=== PATIENT | male | born 1995 | race Caucasian/White ===

== ENCOUNTER 2021-07-17 11:25 | Inpatient (IN) | payer SELFPAY ==
--- NOTE | 2021-07-17 11:36 | W.ED.PSYCH ---
HPI - Psych General: Stated Complaint: 96HR MHE Time Seen by Provider: 07/17/21 11:28 Source: patient and police Mode of arrival: other (police custody) Limitations: no limitations History of Present Illness: HPI Narrative: Patient is a 26-year-old male who presents to ED today from [facility] on a 96-hour hold. From what I can gather from patient's paperwork he attempted suicide yesterday while in [facility] by hanging himself with a bedsheet. He was subsequently transferred to [place] ED and cleared medically. They unfortunately were not able to find patient psychiatric care secondary to limited beds so he was discharged back to [facility]. At some point Dr. Jarvis was contacted who accepted the patient at [facility] as a direct admit. Patient was never supposed to be checked in as an ED patient. Patient tells me he feels suicidal secondary to his mother currently being in the [facility] dying of COVID . He states she is the only family he has left. MD complaint: suicidal ideation Associated symptoms: Reports depression and suicidal ideation Review of Systems Psych: Reports: depression, hopelessness and suicidal ideation Physical Exam Const: COMMON NORMALS: no acute distress, average body habitus, patient oriented x3, no limitations, healthy appearing, alert and well nourished Neck/C-Spine: COMMON NORMALS: full ROM GENERAL: No tender CAROTIDS: No bruit CERVICAL SPINE: Yes cervical ROM normal, No pain with cervical ROM, No Cervical spine tenderness, No Paracervical muscle tenderness and Yes other (No ligature ) Resp: COMMON NORMALS: normal respiratory effort and clear to auscultation bilaterally AUSCULTATION: clear to auscultation bilaterally Cardio: COMMON NORMALS: regular rate and regular rhythm RATE: regular rate RHYTHM: regular rhythm Neuro: COMMON NORMALS: patient oriented x3 SENSORIUM/ORIENTATION: Yes alert Skin: COMMON NORMALS: no rashes or lesions noted GENERAL SKIN EXAM: no rashes or lesions noted TRAUMA: no lacerations or abrasions MDM - Psych MDM Narrative: Medical decision making narrative: Patient will be escorted to [facility] as he was supposed to be a direct admit. Discharge Plan Discharge Patient Disposition: Admitted As Inpatient Admit Provider: Jj Jarvis Clinical Impression: Suicidal ideation, Involuntary commitment Condition: Stable Coding Level of Care Code ED Cardiothoracic Anesthesia Technician for Ollie Mack
[2021-07-17 14:09] LABS: Basophils # 0.1 10^3/uL (0.0-0.1); Basophils % 0.9 %; Eosinophils # 0.1 10^3/uL (0.0-0.8); Eosinophils % 1.4 %; Hematocrit 40.4 % (42.0-52.0); Hemoglobin 13.9 g/dL (11.7-16.6); Lymphocytes # 1.2 10^3/uL (0.8-4.8); Lymphocytes % 20.4 %; Mean Corpuscular HGB Conc 34.4 g/dL (30.0-36.0); Mean Corpuscular Hemoglobin 30.9 pg (28.0-34.0); Mean Corpuscular Volume 89.8 fl (80-94); Mean Platelet Volume 8.8 fL (7.4-10.4); Monocytes # 0.4 10^3/uL (0.2-0.9); Monocytes % 6.7 %; Neutrophils # 4.08 10^3/uL (1.8-7.7); Neutrophils % 70.4 %; Nucleated Red Blood Cells % 0 %; Platelet Count 343 10^3/cmm (130-400); Red Cell Distribution Width 11.9 % (12.1-15.1); White Blood Count 5.8 10^3/uL (4.0-10.0)
[2021-07-17 14:36] LABS: Alanine Aminotransferase 227 U/L (0-41); Albumin Level 4.1 g/dL (3.5-5.2); Alkaline Phosphatase 65 IU/L (40-130); Anion Gap 13.3 (5-19); Aspartate Amino Transferase 112 U/L (0-40); Blood Urea Nitrogen 8 mg/dL (6-20); Calcium 9.3 mg/dL (8.5-10.5); Carbon Dioxide 29 mmol/L (22-29); Chloride 102 mmol/L (98-107); Globulin 3.4 g/dL (1.3-4.6); Glomerular Filtration Rate 135.3 mL/min (90-130); Glucose 153 mg/dL (65-115); Osmolality Calculated 291 mOsm/kg (285-295); Potassium 4.3 mmol/L (3.5-5.1); Sodium 140 mmol/L (136-145); Total Bilirubin 0.5 mg/dL (0.15-1.2); Total Protein 7.5 g/dL (6.6-8.7)
[2021-07-17 14:37] LABS: Acetaminophen < 5.0 ug/mL (10-30); Alcohol Level < 10 mg/dL (0-10); Salicylate < 0.3 mg/dL (3-10)
== END 2021-07-17 11:50 | disposition home or self-care (01) | DRG 882 ==
LOC: ER 11:31 → NP 11:46
PROVIDERS: Admitting Provider Psychiatry & Neurology Psychiatry; Emergency Provider Physician Assistant; Visit Provider Psychiatry & Neurology Psychiatry
DX: F43.25 Adjustment disorder with mixed disturbance of emotions and conduct (principal); R45.851 Suicidal ideations; F15.20 Other stimulant dependence, uncomplicated; F11.20 Opioid dependence, uncomplicated; F41.8 Other specified anxiety disorders; Z91.5 Personal history of self-harm; Z65.3 Problems related to other legal circumstances; Z81.8 Family history of other mental and behavioral disorders; Z63.79 Other stressful life events affecting family and household
CPT/HCPCS: 80053; 80307; 85025

== ENCOUNTER 2021-07-17 11:51 | Inpatient (IN) | payer SELFPAY ==
[2021-07-17 11:53] VITALS: BP 117/80; PULSE 85; RESP 18; TEMP 37.2; O2SAT 98
[2021-07-17 11:58] VITALS: BMI 25.7
[2021-07-17 12:14] VITALS: BP 117/80; PULSE 90; RESP 17; TEMP 37.2; O2SAT 100
[2021-07-17] MEDS: nicotine 2 mg Gum BUCCAL ×4 (13:52→21:35)
[2021-07-17 14:00] VITALS: BP 111/71; PULSE 82; RESP 16; TEMP 37.1; O2SAT 98
[2021-07-17 20:14] VITALS: BP 114/69; PULSE 81; RESP 22; TEMP 36.8; O2SAT 98
[2021-07-17] MEDS: quetiapine 25 mg Tablet 50 MG PO (21:35)
[2021-07-17] MEDS: trazodone 50 mg Tablet PO (21:35)
[2021-07-17] MEDS: acetaminophen 325 mg Tablet 650 MG PO (21:53)
[2021-07-18 06:00] VITALS: BP 94/64; PULSE 79; RESP 20; TEMP 36.8; O2SAT 99
[2021-07-18] MEDS: hyDROXYzine 25 mg Capsule 50 MG PO ×2 (09:20→17:11)
[2021-07-18] MEDS: quetiapine 25 mg Tablet 50 MG PO ×2 (09:21→17:12)
[2021-07-18] MEDS: citalopram 20 mg Tablet PO (09:21)
[2021-07-18] MEDS: nicotine 2 mg Gum BUCCAL ×5 (09:31→21:00)
[2021-07-18] MEDS: acetaminophen 325 mg Tablet 650 MG PO (10:41)
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
--- NOTE | 2021-07-18 12:11 | NPU.GN ---
[facility] Unit Group Topic: Depression Bingo/worrisome thoughts General Mood of Group Luisito attended group and participated by answering question. Behavior appropriate.
[2021-07-18 14:00] VITALS: BP 112/68; PULSE 99; RESP 16; TEMP 37.1; O2SAT 98
[2021-07-18] MEDS: trazodone 150 mg Tablet PO (20:57)
[2021-07-18 22:00] VITALS: BP 106/68; PULSE 119; RESP 19; TEMP 36.6; O2SAT 96
[2021-07-19 06:00] VITALS: BP 104/66; PULSE 84; RESP 16; TEMP 36.7; O2SAT 97
[2021-07-19] MEDS: nicotine 2 mg Gum BUCCAL (06:15)
[2021-07-19] MEDS: citalopram 20 mg Tablet PO (09:14)
[2021-07-19] MEDS: quetiapine 25 mg Tablet 50 MG PO ×2 (09:14→20:10)
[2021-07-19] MEDS: hyDROXYzine 25 mg Capsule 50 MG PO ×2 (09:14→20:09)
[2021-07-19] MEDS: nicotine 21 mg Patch 1 PATCH TRANSDERMA (09:14)
--- NOTE | 2021-07-19 11:36 | NPU.GN ---
[facility] NeuroPsych Unit Group Topic: Self Medicating General Mood of Group: Luisito appeared to be in good spirits and will to participate in group. [facility] asked Luisito if he did self medicate and what he used for this. Luisito stated I use a lot of drugs more than alcohol, I do an 8ball at a time. CSS then ask Luisito if it affected those around him and he replied yes and it hurts himself too. [facility] then went on to asked if he had plans for change once he was discharged and he stated I know I need to make a change so I have a job in [employer]. and I need some out patient help. CSS encouraged client to ask for a referral from his Doctor to [facility]. He said he would.
[2021-07-19] MEDS: guaiFENesin 600 mg Tablet PO ×2 (13:38→20:10)
[2021-07-19 14:00] VITALS: BP 107/71; PULSE 97; RESP 18; TEMP 36.9; O2SAT 97
--- NOTE | 2021-07-19 15:58 | PM.NPN ---
Subjective [facility] Subjective: Interval history: Luisito presents today reporting that he is doing better and that involves focus on when he might get home. He reports he stopped the court and the court advised him that he is 24 hours to report for them to determine where to go from here. He is denying any significant symptoms and saying that the resumption of his medications made all the difference. We discussed discharge in the next 48 hours. Mental Status Exam MSE Comments: This is a well-nourished, well-developed, white male, in hospital scrubs with adequate, grooming, and eye contact. A few tattoos on exposed skin. No abnormal movements. Cooperative with exam in no acute distress. Speech was slightly decreased rate and volume. Mood described as good; affect slightly less subdued. Thought process, organized. Thought content: patient denied any suicidal or homicidal ideation, there were no delusions reported or noted, patient denied any auditory or visual hallucinations. Attention, concentration, and memory appear intact but were not formally tested. He is alert and oriented times three. Insight and judgment are fair and impulse control is limited. Vitals/I&O/Wt Last Vital Signs Temp 98.6 F 07/19/21 20:08 Pulse 105 H 07/19/21 20:08 Resp 20 H 07/19/21 20:08 BP 119/76 07/19/21 20:08 Pulse Ox 96 07/19/21 20:08 A&P Additional A&P Information (1) Involuntary commitment: (2) Suicidal ideation: (3) Adjustment disorder with mixed disturbance of emotions and conduct: (4) Depression with anxiety: This is a 26 year old, white male, with a long history of addiction, specifically methamphetamine and opiates and some reported history of impulsivity, attention deficit hyperactivity disorder, past trauma, who presents after reportedly attempting to [facility] himself in [facility], off of medication. RECOMMENDATION AND PLAN: 1. Continue current medication. 2. Continue q-15 minute checks for safety. 3. Encourage individual, group, and milieu therapy. 4. Encourage sober living treatment after discharge at the highest level of care, to which he is willing to commit. Involuntary Hold Information 96 Hour Hold: 96 Hour Involuntary Admission: Yes 96 Hour Hold Ending Date: 07/21/21 96 Hour Hold Ending Time: 11:58 Attestations [facility] Medical Necessity Statement*: Inpatient hospitalization is medically necessary and the clinically appropriate intervention, at this time. We will monitor medications and make changes as indicated. Likely length of stay is 1-3 days. Coding Level of Care Code Acute Principal Administrative Clerk for Ollie Mack
[2021-07-19 20:08] VITALS: BP 119/76; PULSE 105; RESP 20; TEMP 37; O2SAT 96
[2021-07-19] MEDS: trazodone 150 mg Tablet PO (20:10)
[2021-07-20 06:00] VITALS: BP 111/66; PULSE 56; RESP 17; TEMP 36.5; O2SAT 96
[2021-07-20] MEDS: guaiFENesin 600 mg Tablet PO (08:40)
[2021-07-20] MEDS: citalopram 20 mg Tablet PO (08:40)
[2021-07-20] MEDS: hyDROXYzine 25 mg Capsule 50 MG PO (08:40)
[2021-07-20] MEDS: quetiapine 25 mg Tablet 50 MG PO (08:40)
[2021-07-20] MEDS: nicotine 2 mg Gum BUCCAL (08:42)
[2021-07-20] MEDS: acetaminophen 325 mg Tablet 650 MG PO (10:23)
[2021-07-20 11:35] VITALS: BP 111/66; PULSE 56; RESP 17; TEMP 36.5; O2SAT 96
[2021-07-20] MEDS: nicotine 21 mg Patch 1 PATCH TRANSDERMA (11:37)
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
== END 2021-07-20 16:15 | disposition home or self-care (01) | DRG 880 ==
PROVIDERS: Admitting Provider Psychiatry & Neurology Psychiatry; Visit Provider Psychiatry & Neurology Psychiatry
DX: F41.8 Other specified anxiety disorders (principal); R45.851 Suicidal ideations; F43.25 Adjustment disorder with mixed disturbance of emotions and conduct; F17.210 Nicotine dependence, cigarettes, uncomplicated; Z81.8 Family history of other mental and behavioral disorders; Z88.0 Allergy status to penicillin